=== PATIENT | male | born 1960 | race Caucasian/White ===

== ENCOUNTER 2023-09-01 15:56 | Emergency (ER) | payer BC, SELFPAY ==
[2023-09-01 15:58] VITALS: BP 108/87
[2023-09-01 16:15] LABS: % Basophils 0.5 % (0-2); % Eosinophils 1.2 % (0-6); % Immature Granulocytes 0.5 % (0-0.5); % Lymphocytes 29.6 % (20.5-51.1); % Monocytes 7.4 % (1.7-9.3); % Neutrophils 60.8 % (42.2-75.2); Absolute Eosinophils 0.1 10^3/uL (0-0.7); Absolute Lymphocytes 2.2 10^3/uL (1.2-3.4); Absolute Monocytes 0.6 10^3/uL (0.1-0.6); Absolute Neutrophils 4.5 10^3/uL (1.4-6.5); Hematocrit 45.9 % (39.0-52.0); Hemoglobin 16.5 g/dL (13.0-18.0); Mean Corp Hgb Conc. 35.9 g/dL (33.0-37.0); Mean Corpuscular Volume 89.1 fL (80.0-94.0); Mean Platelet Volume 8.5 fL (7.4-10.4); Nucleated Red Blood Cells % 0 % (-); Platelet Count 279 10^3/uL (130-400); Red Blood Cell Count 5.15 10^6/uL (4.70-6.10); Red Cell Dist. Width 12.6 % (11.5-14.5); White Blood Cell Count 7.4 10^3/uL (4.8-10.8)
[2023-09-01 16:30] LABS: ALT (SGPT) 39 U/L (0-50); AST (SGOT) 38 U/L (17-59); Albumin 4.4 g/dl (3.5-5.0); Alkaline Phosphatase 83 U/L (38-126); Blood Urea Nitrogen 22 mg/dl (9-20); Carbon Dioxide 26 mmol/L (22-30); Chloride 99 mmol/L (98-107); Glucose 195 mg/dl (70-99); Sodium 137 mmol/L (135-145); Total Bilirubin 0.8 mg/dl (0.2-1.3); Total Protein 7.3 g/dl (6.3-8.2); eGFR 48.72
[2023-09-01 17:35] VITALS: BMI 29.6
[2023-09-01 17:43] VITALS: BP 131/97
[2023-09-01] MEDS: FLOMAX 0.400000000000000022 MG PO (17:43)
[2023-09-01] MEDS: MORPHINE SULFATE 4 MG IV (17:51)
[2023-09-01] MEDS: NSS 1000 IV (17:52)
--- NOTE | 2023-09-01 18:33 | ED.GENMED ---
History of Present Illness
General
Chief Complaint: Flank Pain
Source: patient
Time Seen by Provider: 09/01/23 16:39
Travel History
Have you had any contact with someone who has COVID-19?: No
Do you have any symptoms of coronavirus? Fever > 100 degrees, chills, cough, shortness of breath, sore throat, loss of taste or smell, muscle aches, or headache?: No
History of Present Illness
History of Present Illness:
63-year-old male presenting to the emergency department at request of his primary care physician after patient has been dealing with approximately a week and a half of right-sided flank pain, believed his symptoms were related to constipation as he
notes that he is normally regular but did not have a bowel movement for about 2-1/2 days, contacted his primary care physician who recommended some [id number] laxatives and stool softeners which patient took and then proceeded to have a bowel
movement that evening, was unable to have a bowel movement again for another few days so patient was sent for imaging and lab work this past Friday. Patient CT scan came back with a 7 mm mid right ureteral stone and creatinine of 2 which patient
has no history of renal dysfunction so was sent to the ER today for further evaluation. Patient notes that his pain has been mostly improved however today seem to be worse again denies any fevers, chills, rigors, nausea, vomiting, urinary
frequency/urgency/dysuria/hematuria. He also notes that he has had laser lithotripsy previously about 2 years ago
Past History
Past History
ED Past Surgical History: Orthopedic, Urological and Other
Social History
Tobacco: Non-smoker
Alcohol: Occasional
Drug: None
Personal:
Living: with family
Review of Systems
Review of Systems
All Other Systems: ROS reviewed and negative except as documented in HPI and ROS
Phy Exam
Physical Exam
Physical Exam:
GENERAL: Alert , in no apparent distress
EYE: Clear conjunctiva
NECK: Supple
ENT: o/p clr, mmm.
CARDIAC: Regular rate and rhythm .
LUNGS: Clear breath sounds bilaterally, no acute respiratory distress, no wheezes/rales/rhonchi
ABDOMEN: Soft, without focal tenderness, no r/g, Mild right CVA tenderness
NEUROLOGICAL: Alert and oriented
SKIN: Warm and dry, skin intact.
MUSCULOSKELETAL: well perfused.
PSYCH: Normal and appropriate interaction.
Scores
Heart Failure Risk
Heart Failure Risk Score: Not Applicable
Heart Score for Chest Pain Patients
STEMI patient?: Not applicable
Withdrawal Assessment of Alcohol
Withdrawal Assessment Completed?: Not applicable
Course
Orders/Labs/Results
Orders:
Orders
09/01/23 16:08
CMP [Comprehensive Metabolic Panel] Urgent
Complete Blood Count/With Diff Urgent
09/01/23 16:58
0.9% Sodium Chloride 1000 ml [Nss] 1,000 ml IV BOLUS
Morphine Sulfate 4 mg IV NOW STA
Tamsulosin [Flomax] 0.4 mg PO NOW STA
Abnormal Lab Results
09/01/23
16:08
MCH 32.0 H pg
(27.0-31.0)
BUN 22 H mg/dl
(9-20)
Creatinine 1.6 H mg/dL
(0.7-1.3)
Glucose 195 H mg/dl
(70-99)
09/01/23 16:08
09/01/23 16:08
Vital Signs
Initial and Last Documented VS:
Initial Vital Signs
Temp Pulse Resp BP Pulse Ox
98.2 F 110 16 108/87 95
09/01/23 15:58 09/01/23 15:58 09/01/23 15:58 09/01/23 15:58 09/01/23 15:58
Last Documented Vital Signs
Temp Pulse Resp BP Pulse Ox
98.2 F 110 16 159/94 95
09/01/23 15:58 09/01/23 15:58 09/01/23 15:58 09/01/23 18:36 09/01/23 15:58
MDM/Problems Addressed
Differential Diagnosis Includes:
Known ureteral colic, less concern for infectious etiology such as right as or cystitis, acute kidney injury
MDM/Problems Addressed:
63-year-old male presenting the emergency department for evaluation at the request of primary care physician for a 7 mm mid right ureteral stone. CT scan done at [facility] this past Friday. Patient notes he had some increased pain today.
Primary care physician's biggest concern was patient's renal function. Labs were initiated from triage and show an improving creatinine from 2 down to 1.6. Patient has normal white blood cell count. No signs of infection. I discussed the case
with our on-call urologist, Dr. Gupta, who states that as long as patient's pain is controlled and with a downtrending creatinine he feels it would be reasonable for patient to continue outpatient management and pain control. I will provide the
patient with a prescription for Flomax, Percocet and provide with a urine strainer. Information for urology follow-up was provided. Patient advised on return precautions but is otherwise stable for discharge home. We did discuss the possibility
of observation overnight but patient did feel well being discharged home.
*Pulse Oximetry
Patient hypoxic: no
*Critical Care Note
Total Time (30-74mins, 75-104mins- exclusive of procedures): Not Applicable
Data Reviewed
Review of Other/Old Records Reveals: Labs and Radiology Studies
Source: patient and records
Patient Management
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
ED Attending Note
-
Portions of this chart may have been created with voice recognition software.� Occasional wrong word or��sound alike� substitutions may have occurred due to the inherent limitations of voice recognition software.
Discharge Plan
Departure
Patient Disposition: Home (Routine Discharge)
Date of Disposition: 09/01/23
Time of Disposition: 18:33
Patient with high blood pressure during this ER visit?: No
Discharge Problem:
Calculus of right ureter, ANGELITO (acute kidney injury)
Instructions: Renal Colic (DC)
Prescriptions:
New
tamsulosin [Flomax] 0.4 mg capsule
0.4 mg PO DAILY Qty: 15 0RF
docusate sodium [Colace] 100 mg capsule
100 mg PO DAILY PRN (Reason: constipation) Qty: 15 0RF
oxycodone-acetaminophen [Percocet] 5-325 mg Tablet
1 tab PO Q6HPRN PRN (Reason: pain) Qty: 8 0RF
Referrals:
Mihai Sanchez MD [Family Provider] -
Andrzej Gupta MD [Active] - (Urology)
Interventions
Interventions:
*Risk Screen - Suicide Last Done: 09/01/23 17:35
*General Assessment Last Done: 09/01/23 15:58
*Neglect/Abuse Screening Last Done: 09/01/23 17:35
ED- Fall Risk Assessment Last Done: 09/01/23 18:46
*ED COVID-19 Vaccine History Last Done: 09/01/23 15:58
*Nursing Disposition Last Done: 09/01/23 18:46
XI-Shcjtj-Ealoaiynwb Assessment Last Done: 09/01/23 17:35
ED-Male Genitourinary Assessment Last Done: 09/01/23 17:35
Discharge Date and Time
Discharge Date/Time: 09/01/23 18:46
[2023-09-01 18:36] VITALS: BP 159/94
== END 2023-09-01 18:46 | disposition home or self-care (01) ==
LOC: EMR 15:56
PROVIDERS: Emergency Medicine; EMERGENCY PHYSICIAN Emergency Medicine; FAMILY PHYSICIAN Internal Medicine
DX: N20.1 Calculus of ureter (principal); N17.9 Acute kidney failure, unspecified
CPT/HCPCS: 99284; 96374; 96361; 80053; 85025